=== PATIENT | female | born 1950 | race Caucasian/White ===

== ENCOUNTER → 2016-12-02 | Outpatient (CLI) | payer BC ==
--- NOTE | 2016-12-02 16:16 | MY ---
EXAMINATION: Bilateral digital mammography utilizing CAD. HISTORY: Screening exam. Comparison is made to previous studies dated 08/04/2015, 07/08/2014, 2012. FINDINGS: Bilateral scattered fibroglandular densities. No suspicious calcifications, masses or a rchitectural distortions. No pathologic appearing lymph nodes, no abnormal skin thickening or nipp le inversion. CAD highlighted regions appear normal at this time. IMPRESSION: BI-RADS category I - negative mammogram. Continued screening according to ACR-ACS gu idelines suggested. THE FALSE-NEGATIVE RATE OF MAMMOGRAM IS APPROXIMATELY 10%. MANAGEMENT OF A PALPABLE ABNORMALITY MUST BE BASED UPON CLINICAL GROUNDS. SENSITIVITY FOR DETECTION OF ABNORMALITIES IN DENSE BREASTS IS LOW. NOTE: A letter will be sent to the patient regarding findings. -- COLLETTE Randolph [phone] - FAX [phone]
== END ==
LOC: MW.CHOBGYN 10:24
PROVIDERS: ATTEND Nurse Practitioner Women's Health
DX: Z12.31 Encounter for screening mammogram for malignant neoplasm of breast (principal)
CPT/HCPCS: G0202; G0202-26

== ENCOUNTER → 2017-02-14 | Outpatient (CLI) | payer BC | LOC: MW.RT 20:07 | PROVIDERS: ATTEND Student in an Organized Health Care Education/Training Program | DX: I49.3 Ventricular premature depolarization (principal) ==

== ENCOUNTER 2018-11-03 22:07 | Emergency (ER) | payer MEDICARE, BC ==
[2018-11-03] MEDS ORDERED: Aspirin 81 MG Tab.Chew PO ONE (22:08)
[2018-11-03] MEDS ORDERED: Sodium Chloride 0.9% 1,000 ML IV ONE (22:08)
[2018-11-03] MEDS ORDERED: Pantoprazole 40 MG Vial IVPUSH ONE (22:09)
--- NOTE | 2018-11-03 22:09 | EDM.PDOC ---
ED HPI GENERAL MEDICAL PROBLEM - General Chief Complaint: Abdominal Pain Stated Complaint: PT HAS STOMACH PAINS Time Seen by Provider: 11/03/18 22:09 Source of Information: Reports: Patient - History of Present Illness INITIAL COMMENTS - FREE TEXT/NARRATIVE: HISTORY AND PHYSICAL: History of present illness: [Patient presents with epigastric pain 4 out of 10 nonradiating no shortness of breath or diaphoresis no radiation arm neck or jaw, discomfort persistent for 3 hours Pain resolved without treatment shortly after arrival was sitting up prior home she was lying down acid reflux would be a consideration However with age and recent bradycardia on Rythmol would've preferred to observe the patient however she refuses to be admitted at this time and elects to go home she states she'll return if symptoms persist or worsen she is completely asymptomatic at current ] Review of systems: As per history of present illness and below otherwise all systems reviewed and negative. Past medical history: As per history of present illness and as reviewed below otherwise noncontributory. Surgical history: As per history of present illness and as reviewed below otherwise noncontributory. Social history: No reported history of drug or alcohol abuse. Family history: As per history of present illness and as reviewed below otherwise noncontributory. Physical exam: HEENT: Atraumatic, normocephalic, pupils reactive, negative for conjunctival pallor or scleral icterus, mucous membranes moist, throat clear, neck supple, nontender, trachea midline. Lungs: Clear to auscultation, breath sounds equal bilaterally, chest nontender. Heart: S1S2, regular, negative for clicks, rubs, or JVD. Abdomen: Soft, nondistended, nontender. Negative for masses or hepatosplenomegaly. Negative for costovertebral tenderness. Pelvis: Stable nontender. Genitourinary: Deferred. Rectal: Deferred. Extremities: Atraumatic, negative for cords or calf pain. Neurovascular unremarkable. Neuro: Awake, alert, oriented. Cranial nerves II through XII unremarkable. Cerebellum unremarkable. Motor and sensory unremarkable throughout. Exam nonfocal. Diagnostics: []CBC CMP troponin lipase INR UA Therapeutics: []Aspirin Proton X 80 mg IV Patient offered observation admission for telemetry she refused at this time Macrobid Impression: [] epigastric pain -resolved Before meals UTI Chronic history baseline Definitive disposition and diagnosis as appropriate pending reevaluation and review of above. epigastric area Pain Score (Numeric/FACES): 2 - Related Data Allergies Allergy/AdvReac Type Severity Reaction Status Date / Time Penicillins Allergy Cannot Verified 11/03/18 22:22 Remember gentamycin eye drops Allergy Swelling Uncoded 11/03/18 22:22 Home Meds: Home Meds Aspirin 81 mg PO DAILY 09/25/18 [History] Carbidopa/Levodopa [Carbidopa-Levo ER 25-100] 1 tab PO DAILY 09/25/18 [History] Diclofenac Sodium [Voltaren] 75 mg PO BIDMEALS PRN #14 tab.cr 09/25/18 [Rx] Fluticasone/Vilanterol [Breo Ellipta 200-25 Mcg INH] 1 puff IN DAILY 09/25/18 [ History] Gemfibrozil 1 tab PO DAILY 09/25/18 [History] Metoprolol Succinate [Toprol XL] 25 mg PO DAILY 09/25/18 [History] Orphenadrine [Norflex] 100 mg PO BID PRN #10 tab 09/25/18 [Rx] Propafenone [Rythmol] 150 mg PO TID 09/25/18 [History] Vitamin B Complex 1 each PO DAILY 09/25/18 [History] Past Medical History HEENT History: Other HEENT History: wears contacts/glasses Cardiovascular History: Reports: Other (See Below) Other Cardiovascular History: occasional irregular heartbeat Respiratory History: Reports: COPD Other Respiratory History: states "mild COPD" Gastrointestinal History: Reports: None Genitourinary History: Reports: None Musculoskeletal History: Reports: Gout Other Musculoskeletal History: states "gout years ago" Neurological History: Reports: None Psychiatric History: Reports: Anxiety, Depression Endocrine/Metabolic History: Reports: Obesity/BMI 30+ Hematologic History: Reports: None Immunologic History: Reports: None Oncologic (Cancer) History: Reports: None Dermatologic History: Other Dermatologic History: adult acne - Infectious Disease History Infectious Disease History: Reports: Chicken Pox, Measles - Past Surgical History Head Surgeries/Procedures: Reports: None Social & Family History - Family History Family Medical History: Noncontributory ED ROS GENERAL - Review of Systems Review Of Systems: See Below ED EXAM, GENERAL - Physical Exam Exam: See Below Course - Vital Signs Last Recorded V/S: Last Vital Signs Temp 97.6 F 11/03/18 22:10 Pulse 54 L 11/03/18 22:10 Resp 18 11/03/18 22:10 BP 141/73 H 11/03/18 22:10 Pulse Ox 95 11/03/18 22:10 - Orders/Labs/Meds Orders: Active Orders 24 hr Category Date Time Status EKG Documentation Completion [RC] STAT Care 11/03/18 22:09 Active CULTURE URINE [RM] Stat Lab 11/03/18 22:12 Received Sodium Chloride 0.9% [Normal Saline] 1,000 ml Med 11/03/18 22:08 Active IV STAT Medication Orders Sodium Chloride (Normal Saline) 1,000 mls @ 999 mls/hr IV STAT ONE Stop: 11/03/18 23:08 Last Admin: 11/03/18 22:32 Dose: 999 mls/hr Labs: Laboratory Tests 11/03/18 11/03/18 11/03/18 Range/Units 22:12 22:28 22:28 WBC 6.94 (4.0-11.0) K/uL RBC 4.72 (4.30-5.90) M/uL Hgb 14.8 (12.0-16.0) g/dL Hct 43.5 (36.0-46.0) % MCV 92.2 (80.0-98.0) fL MCH 31.4 (27.0-32.0) pg MCHC 34.0 (31.0-37.0) g/dL RDW Std Deviation 43.3 (28.0-62.0) fl RDW Coeff of Roly 13 (11.0-15.0) % Plt Count 246 (150-400) K/uL MPV 10.10 (7.40-12.00) fL Neut % (Auto) 64.6 (48.0-80.0) % Lymph % (Auto) 23.2 (16.0-40.0) % [place] % (Auto) 9.2 (0.0-15.0) % Eos % (Auto) 2.6 (0.0-7.0) % Baso % (Auto) 0.4 (0.0-1.5) % Neut # (Auto) 4.5 (1.4-5.7) K/uL Lymph # (Auto) 1.6 (0.6-2.4) K/uL [place] # (Auto) 0.6 (0.0-0.8) K/uL Eos # (Auto) 0.2 (0.0-0.7) K/uL Baso # (Auto) 0.0 (0.0-0.1) K/uL Nucleated RBC % 0.0 /100WBC Nucleated RBCs # 0 K/uL INR 1.06 Sodium (136-145) mmol/L Potassium (3.5-5.1) mmol/L Chloride (98-107) mmol/L Carbon Dioxide (21.0-32.0) mmol/L BUN (7.0-18.0) mg/dL Creatinine (0.6-1.0) mg/dL Est Cr Clr Drug Dosing mL/min Estimated GFR (MDRD) ml/min Glucose (74-106) mg/dL Calcium (8.5-10.1) mg/dL Total Bilirubin (0.2-1.0) mg/dL AST (15-37) IU/L ALT (14-63) IU/L Alkaline Phosphatase (46-116) U/L Creatine Kinase (26-308) U/L Troponin I (0.000-0.056) ng/mL Total Protein (6.4-8.2) g/dL Albumin (3.4-5.0) g/dL Globulin (2.6-4.0) g/dL Albumin/Globulin Ratio (0.9-1.6) Lipase (73-393) U/L Urine Color YELLOW Urine Appearance SLT CLOUDY Urine pH 6.0 (5.0-8.0) Ur Specific [place] 1.020 (1.001-1.035) Urine Protein NEGATIVE (NEGATIVE) mg/dL Urine Glucose (UA) NEGATIVE (NEGATIVE) mg/dL Urine Ketones TRACE H (NEGATIVE) mg/dL Urine Occult Blood NEGATIVE (NEGATIVE) Urine Nitrite NEGATIVE (NEGATIVE) Urine Bilirubin NEGATIVE (NEGATIVE) Urine Urobilinogen 0.2 (<2.0) EU/dL Ur Leukocyte Esterase TRACE H (NEGATIVE) Urine RBC 0-2 (0-2/HPF) Urine WBC 2-4 (0-5/HPF) Ur Epithelial Cells OCCASIONAL (NONE-FEW) Calcium Oxalate Crystal MANY (NEGATIVE) Urine Bacteria FEW (NEGATIVE) 11/03/18 Range/Units 22:28 WBC (4.0-11.0) K/uL RBC (4.30-5.90) M/uL Hgb (12.0-16.0) g/dL Hct (36.0-46.0) % MCV (80.0-98.0) fL MCH (27.0-32.0) pg MCHC (31.0-37.0) g/dL RDW Std Deviation (28.0-62.0) fl RDW Coeff of Roly (11.0-15.0) % Plt Count (150-400) K/uL MPV (7.40-12.00) fL Neut % (Auto) (48.0-80.0) % Lymph % (Auto) (16.0-40.0) % [place] % (Auto) (0.0-15.0) % Eos % (Auto) (0.0-7.0) % Baso % (Auto) (0.0-1.5) % Neut # (Auto) (1.4-5.7) K/uL Lymph # (Auto) (0.6-2.4) K/uL [place] # (Auto) (0.0-0.8) K/uL Eos # (Auto) (0.0-0.7) K/uL Baso # (Auto) (0.0-0.1) K/uL Nucleated RBC % /100WBC Nucleated RBCs # K/uL INR Sodium 142 (136-145) mmol/L Potassium 4.4 (3.5-5.1) mmol/L Chloride 107 (98-107) mmol/L Carbon Dioxide 27.3 (21.0-32.0) mmol/L BUN 18 (7.0-18.0) mg/dL Creatinine 1.0 (0.6-1.0) mg/dL Est Cr Clr Drug Dosing 51.63 mL/min Estimated GFR (MDRD) 55.0 ml/min Glucose 150 H (74-106) mg/dL Calcium 9.7 (8.5-10.1) mg/dL Total Bilirubin 0.3 (0.2-1.0) mg/dL AST 12 L (15-37) IU/L ALT 19 (14-63) IU/L Alkaline Phosphatase 143 H (46-116) U/L Creatine Kinase 87 (26-308) U/L Troponin I < 0.050 (0.000-0.056) ng/mL Total Protein 7.1 (6.4-8.2) g/dL Albumin 3.7 (3.4-5.0) g/dL Globulin 3.4 (2.6-4.0) g/dL Albumin/Globulin Ratio 1.1 (0.9-1.6) Lipase 146 (73-393) U/L Urine Color Urine Appearance Urine pH (5.0-8.0) Ur Specific [place] (1.001-1.035) Urine Protein (NEGATIVE) mg/dL Urine Glucose (UA) (NEGATIVE) mg/dL Urine Ketones (NEGATIVE) mg/dL Urine Occult Blood (NEGATIVE) Urine Nitrite (NEGATIVE) Urine Bilirubin (NEGATIVE) Urine Urobilinogen (<2.0) EU/dL Ur Leukocyte Esterase (NEGATIVE) Urine RBC (0-2/HPF) Urine WBC (0-5/HPF) Ur Epithelial Cells (NONE-FEW) Calcium Oxalate Crystal (NEGATIVE) Urine Bacteria (NEGATIVE) Meds: Medications Generic Name Dose Route Start Last Admin Trade Name Freq PRN Reason Stop Dose Admin Sodium Chloride 1,000 mls @ 999 mls/hr 11/03/18 22:08 11/03/18 22:32 Normal Saline IV 11/03/18 23:08 999 mls/hr STAT ONE Administration Discontinued Medications Generic Name Dose Route Start Last Admin Trade Name Freq PRN Reason Stop Dose Admin Aspirin 324 mg 11/03/18 22:08 11/03/18 22:33 Aspirin PO 11/03/18 22:09 324 mg ONETIME ONE Administration Pantoprazole Sodium 80 mg 11/03/18 22:09 11/03/18 22:36 Protonix Iv IVPUSH 11/03/18 22:10 80 mg .BOLUS ONE Administration Departure - Departure Time of Disposition: 23:09 Disposition: Home, Self-Care 01 Condition: Good Clinical Impression: UTI (urinary tract infection) - Discharge Information Forms: ED Department Discharge Additional Instructions: The following information is given to patients seen in the emergency department who are being discharged to home. This information is to outline your options for follow-up care. We provide all patients seen in our emergency department with a follow-up referral. The need for follow-up, as well as the timing and circumstances, are variable depending upon the specifics of your emergency department visit. If you don't have a primary care physician on staff, we will provide you with a referral. We always advise you to contact your personal physician following an emergency department visit to inform them of the circumstance of the visit and for follow-up with them and/or the need for any referrals to a consulting specialist. The emergency department will also refer you to a specialist when appropriate. This referral assures that you have the opportunity for follow-up care with a specialist. All of these measure are taken in an effort to provide you with optimal care, which includes your follow-up. Under all circumstances we always encourage you to contact your private physician who remains a resource for coordinating your care. When calling for follow-up care, please make the office aware that this follow-up is from your recent emergency room visit. If for any reason you are refused follow-up, please contact the [facility] emergency department at and asked to speak to the emergency department charge nurse. - My Orders Last 24 Hours: My Active Orders 11/03/18 22:08 Sodium Chloride 0.9% [Normal Saline] 1,000 ml IV STAT 11/03/18 22:09 EKG Documentation Completion [RC] STAT 11/03/18 22:12 CULTURE URINE [RM] Stat - Assessment/Plan Last 24 Hours: My Active Orders 11/03/18 22:08 Sodium Chloride 0.9% [Normal Saline] 1,000 ml IV STAT 11/03/18 22:09 EKG Documentation Completion [RC] STAT 11/03/18 22:12 CULTURE URINE [RM] Stat
--- NOTE | 2018-11-03 22:47 | CR ---
INDICATION: pain TECHNIQUE: Chest 1 view. COMPARISON: 03/15/16 FINDINGS: Cardiovascular and mediastinum: Heart size and vasculature are normal in caliber and appearance. Mediastinum is within normal limits. Lungs and pleural space: Lungs are clear. No sign of infiltrate or mass. No sign of pleural effusion. No pneumothorax. Bones and soft tissues: No significant findings. IMPRESSION: Unremarkable chest. Dictated by: Richard Stevens MD @ 11/03/2018 22:45:34 (Electronically Signed)
[2018-11-03 22:59] LABS: CHLORIDE,CL 107 mmol/L (98-107); SODIUM,NA 142 mmol/L (136-145)
[2018-11-03 23:21] VITALS: BP 145/83
== END 2018-11-03 23:21 | disposition home or self-care (01) ==
LOC: MW.ED 22:07
DX: N39.0 Urinary tract infection, site not specified (principal); Z88.0 Allergy status to penicillin; Z88.1 Allergy status to other antibiotic agents; Z79.82 Long term (current) use of aspirin; Z79.899 Other long term (current) drug therapy
CPT/HCPCS: 36415; 71045; 80053; 81001; 82550; 83690; 84484; 85025; 85610; 87086; 96361; 96374; 99284; A9270; C9113; J7040; 93005

== ENCOUNTER 2019-02-16 06:25 | Day surgery (SDC) | payer MEDICARE, BC ==
[~2019-02-16 06:25] MED LIST: Lactated Ringers 1,000 ML IV SCH; Sodium Chloride 0.9% 10 ML SDV IV PRN; Sodium Chloride 0.9% 10 ML Syringe FLUSH PRN; Sodium Chloride 0.9% 2.5 ML Syringe FLUSH PRN; ceFAZolin 2 GM in Premix Bag 1 BAG IV ONE
[2019-02-16] MEDS ORDERED: Bupivacaine 0.5% 10 ML SDV ONE ×2 (07:07→09:48)
[2019-02-16] MEDS ORDERED: fentaNYL 250 MCG/5 ML SDV ONE (07:24)
[2019-02-16] MEDS ORDERED: Propofol 200 MG/20 ML SDV ONE (07:24)
[2019-02-16] MEDS ORDERED: Scopolamine 1.5 MG Transdermal Patch TRDERM PRN (07:30)
[2019-02-16] MEDS ORDERED: Rocuronium 100 MG/10 ML Syringe ONE (07:31)
[2019-02-16] MEDS ORDERED: Ondansetron 4 MG/2 ML SDV ONE (07:31)
[2019-02-16] MEDS ORDERED: Dexamethasone 4 MG/ML 5 ML MDV ONE (07:31)
--- NOTE | 2019-02-16 07:36 | PCM.PREANE ---
Preanesthetic Assessment - Anesthesia/Transfusion/Family Hx Anesthesia History: Prior Anesthesia Without Reaction Family History of Anesthesia Reaction: No Transfusion History: No Prior Transfusion(s) - Review of Systems General: No Symptoms Pulmonary: No Symptoms Cardiovascular: No Symptoms Gastrointestinal: No Symptoms Neurological: Pre-Existing Deficit Other: Reports: None - Physical Assessment NPO Status Date: 02/16/19 NPO Status Time: 05:30 O2 Sat by Pulse Oximetry: 95 Respiratory Rate: 16 Vital Signs: Last Vital Signs Temp 95.9 F 02/16/19 06:45 Pulse 59 L 02/16/19 06:45 Resp 16 02/16/19 06:45 BP 112/65 02/16/19 06:45 Pulse Ox 95 02/16/19 06:45 Height: 5 ft 7 in Weight: 102.512 kg ASA Class: 3 Mental Status: Alert & Oriented x3 Airway Class: Mallampati = 3 Dentition: Reports: Partial (upper) ROM/Head Extension: Full Lungs: Clear to Auscultation, Normal Respiratory Effort Cardiovascular: Regular Rate, Regular Rhythm - Allergies Allergies/Adverse Reactions: Allergies Allergy/AdvReac Type Severity Reaction Status Date / Time Penicillins Allergy Cannot Verified 02/10/19 14:42 Remember Sulfa (Sulfonamide Allergy Rash Verified 02/10/19 14:42 Antibiotics) tobramycin Allergy Rash Verified 02/10/19 14:42 gentamycin eye drops Allergy Swelling Uncoded 02/10/19 14:42 - Blood Blood Available: No - Anesthesia Plan Pre-Op Medication Ordered: Other (scop) - Acknowledgements Anesthesia Type Planned: General Anesthesia Pt an Appropriate Candidate for the Planned Anesthesia: Yes Alternatives and Risks of Anesthesia Discussed w Pt/Guardian: Yes Pt/Guardian Understands and Agrees with Anesthesia Plan: Yes Additional Comments: PMH: parkinsons, copd, anx/dep, hld, BERNARD-too mild to be covered by [facility], 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 since we will be giving drugs that may increast QT, will recheck QTc this am. PLAN: GET PreAnesthesia Questionnaire HEENT History: Reports: Allergic Rhinitis Other HEENT History: wears contacts and uses readers Cardiovascular History: Reports: Arrhythmia, High Cholesterol Other Cardiovascular History: hx of frequent PVC's Respiratory History: Reports: COPD, Sleep Apnea Other Respiratory History: states "mild" COPD and "mild" sleep apnea (no CPAP) Gastrointestinal History: Reports: Cholelithiasis, PUD Other Gastrointestinal History: hx of gastric ulcer as a child Genitourinary History: Reports: Other (See Below) Other Genitourinary History: recent UTI [employer]ACHIN[employer] History: Reports: Musculoskeletal History: Reports: Gout Other Musculoskeletal History: states "gout years ago" Neurological History: Reports: Parkinson's, Other (See Below) Other Neuro History: tremor right hand, Claustrophobic in MRI machine Psychiatric History: Reports: Other (See Below) Other Psychiatric History: possibly slight ADD Endocrine/Metabolic History: Reports: Obesity/BMI 30+ Hematologic History: Reports: None Immunologic History: Reports: None Oncologic (Cancer) History: Reports: None Dermatologic History: Reports: Other (See Below) Other Dermatologic History: Rosacea - Infectious Disease History Infectious Disease History: Reports: Chicken Pox, Measles - Past Surgical History Head Surgeries/Procedures: Reports: None GI Surgical History: Reports: None Female Surgical History: Reports: None Musculoskeletal Surgical History: Reports: Carpal Tunnel, Other (See Below) Other Musculoskeletal Surgeries/Procedures:: hx of bilateral CTR and removal of Neuroma right wrist - SUBSTANCE USE Smoking Status *Q: Former Smoker Tobacco Use Within Last Twelve Months: No Recreational Drug Use History: No - HOME MEDS Home Medications: Home Meds Aspirin 81 mg PO DAILY 09/25/18 [History] Carbidopa/Levodopa [Carbidopa-Levo ER 25-100] 1 tab PO TID 09/25/18 [History] Fluticasone/Vilanterol [Breo Ellipta 200-25 Mcg INH] 1 puff IN DAILY 09/25/18 [ History] Gemfibrozil 600 mg PO DAILY 09/25/18 [History] Metoprolol Succinate [Toprol XL] 25 mg PO QAM 09/25/18 [History] Propafenone [Rythmol] 150 mg PO TID 09/25/18 [History] Calcium Carbonate/Vitamin D3 [Calcium 600 + Vit D 200] 1 tab PO DAILY 02/10/19 [ History] Fish Oil/Borage/Flax/Om3,6,9#1 [[place] 3-6-9 Complex Softgel] 1 cap PO DAILY [History] Lutein/Minerals/Vit A,C & E [Ocuvite] 1 tab PO DAILY 02/10/19 [History] Magnesium 250 mg PO DAILY 02/10/19 [History] Protandin 1 tab PO DAILY 02/10/19 [History] - CURRENT (IN HOUSE) MEDS Current Meds: Current Medications Lactated Ringer's (Ringers, Lactated) 1,000 mls @ 125 mls/hr IV ASDIRECTED SHANA Last Admin: 02/16/19 06:50 Dose: 125 mls/hr Sodium Chloride (Saline Flush) 10 ml FLUSH ASDIRECTED PRN PRN Reason: Keep Vein Open Sodium Chloride (Saline Flush) 2.5 ml FLUSH ASDIRECTED PRN PRN Reason: Keep Vein Open Sodium Chloride (Normal Saline) 10 ml IV ASDIRECTED PRN PRN Reason: IV Use Discontinued Medications Bupivacaine HCl (Sensorcaine-Mpf 0.5%) Confirm Administered Dose 10 ml .ROUTE .STK-MED ONE Stop: 02/16/19 07:08 Fentanyl (Sublimaze) Confirm Administered Dose 250 mcg .ROUTE .STK-MED ONE Stop: 02/16/19 07:25 Cefazolin Sodium/Dextrose 2 gm (/ Premix) 50 mls @ 100 mls/hr IV ONETIME ONE Stop: 02/15/19 09:46 Lidocaine HCl (Xylocaine-Mpf 1%) Confirm Administered Dose 5 mls @ as directed .ROUTE .STK-MED ONE Stop: 02/16/19 07:25 Propofol (Diprivan 20 Ml) Confirm Administered Dose 200 mg .ROUTE .STK-MED ONE Stop: 02/16/19 07:25
[2019-02-16] MEDS ORDERED: ceFAZolin/Dextrose,Iso-Osmotic 2 GM/50 ML Duplex Bag IV ONE (08:12)
[2019-02-16] MEDS ORDERED: ePHEDrine 50 MG/ML SDV ONE (08:15)
[2019-02-16] MEDS ORDERED: Glycopyrrolate 0.2 MG/ML SDV ONE ×2 (08:51→09:44)
[2019-02-16] MEDS ORDERED: Albuterol 0.083% 2.5 MG/3 ML Neb Soln NEB PRN (09:09)
[2019-02-16] MEDS ORDERED: 50% Dextrose in Water 50 ML Syringe IVPUSH PRN (09:09)
[2019-02-16] MEDS ORDERED: Atropine 0.1 MG/ML 10 ML Syringe IVPUSH PRN ×2 (09:09)
[2019-02-16] MEDS ORDERED: EPINEPHrine 1:10,000 1 MG/10 ML Syringe IVPUSH PRN (09:09)
[2019-02-16] MEDS ORDERED: Naloxone 0.4 MG/ML Syringe IVPUSH PRN (09:09)
[2019-02-16] MEDS ORDERED: Neostigmine Methylsulfate 1 MG/ML 5 ML Syringe ONE (09:44)
[2019-02-16] MEDS ORDERED: Sugammadex Sodium 200 MG/2 ML VIAL ONE (09:48)
[2019-02-16] MEDS ORDERED: fentaNYL 100 MCG/2 ML SDV ONE (09:58)
--- NOTE | 2019-02-16 09:58 | PCM.OPNOTE ---
<Nam Hull - Last Filed: 02/16/19 09:56> - General Post-Op/Procedure Note Date of Surgery/Procedure: 02/16/19 Operative Procedure(s): [place] Findings: 4 Cm Gallstone contained within the Gallbladder. Pre Op Diagnosis: Cholelithias Post-Op Diagnosis: Cholelithiasis Primary Surgeon: Valerie Lackey Secondary Surgeon: Nam Hull Fluid Replacement, Intraop: 1,300 Output, Urine Amount: 30 EBL in mLs: 10 Complications: None Condition: Good <Valerie Lackey - Last Filed: 02/16/19 10:15> - General Post-Op/Procedure Note Pre Op Diagnosis: Symptomatic cholelithiasis Post-Op Diagnosis: Chronic cholecystits with cholelithiasis Anesthesia Technique: General ET Tube Pathology: gallbladder Free Text/Narrative:: Intake & Output 02/15/19 02/16/19 02/16/19 22:59 06:59 14:59 Intake Total 1300 Output Total 30 Balance 1270
[2019-02-16] MEDS: fentaNYL 100 MCG/2 ML SDV IVPUSH PRN ×2 (10:17→10:25)
--- NOTE | 2019-02-16 10:37 | PCM.POSTAN ---
POST ANESTHESIA ASSESSMENT - MENTAL STATUS Mental Status: Alert, Oriented - RESPIRATORY Respiratory Status: Respiratory Rate WNL, Airway Patent, O2 Saturation Stable ( nc) - CARDIOVASCULAR CV Status: Pulse Rate WNL, Blood Pressure Stable - GASTROINTESTINAL GI Status: No Symptoms - POST OP HYDRATION Hydration Status: Adequate & Stable
[2019-02-16] MEDS ORDERED: Acetaminophen 1,000 MG in Premix Bag 1 BAG IV ONE (11:19)
--- NOTE | 2019-02-16 12:30 | OR ---
SURGEON: VALERIE BENAVIDEZ MD DATE OF PROCEDURE: 02/16/2019 PREOPERATIVE DIAGNOSIS: Symptomatic cholelithiasis. POSTOPERATIVE DIAGNOSIS: Chronic cholecystitis with cholelithiasis. PROCEDURE PERFORMED: Laparoscopic cholecystectomy. PRIMARY SURGEON: Valerie Benavidez MD. REGIONAL TRANSPORTATION MANAGER: Shop Director: Dr. Nam Hull, Program Director Scouting. FLUIDS: 1300 mL of crystalloid. ESTIMATED BLOOD LOSS: 10 mL. URINE OUTPUT: 30 mL. ANESTHESIA: General endotracheal anesthesia. FINDINGS: A 3- to 4-cm stone within the body of the gallbladder with signs of chronic cholecystitis. COMPLICATIONS: None. INDICATIONS: The patient is a 68-year-old female, who presents with symptomatic cholelithiasis. The patient and I discussed the need for cholecystectomy. I explained both the laparoscopic and open approaches. I explained that I would attempt this laparoscopically, but should I be unable to perform it safely, I converted to open. The patient and I discussed the expected perioperative course as well as the risks including bleeding, infection, or damage to surrounding structures. The patient verbalized understanding and wishes to proceed. PROCEDURE IN DETAIL: The patient was brought into the OR and placed on the OR table in supine position. A time-out was completed verifying the patient's name, age, date of , allergies, and procedure to be performed. General endotracheal anesthesia was induced. The left arm was tucked at the patient's side and a Espino catheter placed. The abdomen was prepped and draped in usual standard fashion. I anesthetized the supraumbilical midline with 0.5% Marcaine plain. A 2 cm incision was made using an 11 blade. Cautery was used to dissect down to the level of subcutaneous fat. I bluntly dissected down to the fascia and elevated it with Flo's. It was incised sharply. I identified the peritoneum, elevated this, and incised it as well. Entry into the abdomen was palpated digitally. A 12 mm Saranya trocar was placed in the abdomen and the abdomen insufflated. A 5 mm 30-degree scope was inserted. I inspected the area underneath my initial trocar placement. No damage to surrounding structures was noted. The patient was placed into reverse Trendelenburg position and airplaned slightly to the left. Three 5 mm trocars were placed under direct visualization in the following locations; 1 in the epigastric area, 1 in the right flank, and 1 two fingerbreadths below the right subcostal margin along the midclavicular line. I attempted to grasp the dome of the gallbladder, however, it was very firm. With some manipulation, I was able to eventually get a grasp of the gallbladder wall and elevate the gallbladder. It was grossly distended. I attempted to use an aspiration needle to decompress the gallbladder, however, no bilious fluid was obtained. The gallbladder was gently elevated above the liver and I exposed the infundibulum. The infundibulum was covered in inflamed fatty tissue. This was taken down using both electrocautery and gentle blunt dissection. The case was quite difficult given that the patient had an extremely large stone impacted in the body of the gallbladder. Fortunately, the infundibulum was soft and pliable, and I was able to safely take down all the peritoneal attachments to obtain my critical view. A photograph was taken once I had obtained my critical view. I then doubly clipped and ligated my cystic duct and artery. Using electrocautery, I then gently and meticulously took down the attachments of the gallbladder to the gallbladder fossa. This was quite difficult given the large nature of the stone. I was eventually able to safely take the gallbladder off the liver bed. I inspected my operative field. It was hemostatic with no evidence of biliary leakage. Given the large size of the gallstone, I decided to irrigate my abdomen before removing it as I was afraid that I would have to make a much larger incision to get the gallstones out and would not be able to hold any insufflation anymore. The abdomen was irrigated with normal saline until it ran clear. I reinspected my operative field and it was hemostatic. I then placed the gallbladder in an endoscopic bag and attempted to remove it through the supraumbilical port site. I did have to extend my incision 2 more cm in order to remove the gallbladder from the abdominal cavity. It was passed off the field and sent to Pathology. I then removed my 5 mm trocars with digital palpation. I closed the supraumbilical incision site with [id number] Vicryl sutures. I then closed the subcutaneous fat layer with interrupted 3-0 Vicryl. The skin was closed with a running 4-0 Monocryl suture. The 5 mm trocar sites were closed with interrupted 4-0 Monocryl sutures. Steri-Strips and sterile dressings were applied. The patient tolerated the procedure well and was taken to PACU in stable condition. All counts were complete and correct at the end of the case. CHLOE WRIGHT /[id number]
--- NOTE | 2019-02-16 12:34 | PCM48HPAN ---
Post Anesthesia Note - EVALUATION WITHIN 48HRS OF ANESTHETIC Vital Signs in Normal Range: Yes Patient Participated in Evaluation: Yes Respiratory Function Stable: Yes Airway Patent: Yes Cardiovascular Function Stable: Yes Hydration Status Stable: Yes Pain Control Satisfactory: Yes Nausea and Vomiting Control Satisfactory: Yes Mental Status Recovered: Yes Resp Rate: 16
[2019-02-16 12:40] VITALS: BP 122/60
== END 2019-02-16 12:35 | disposition home or self-care (01) ==
LOC: MW.SDS 06:25
PROVIDERS: ATTEND Surgery
DX: K80.10 Calculus of gallbladder with chronic cholecystitis without obstruction (principal); J44.1 Chronic obstructive pulmonary disease with (acute) exacerbation; G47.33 Obstructive sleep apnea (adult) (pediatric); F41.8 Other specified anxiety disorders; E78.5 Hyperlipidemia, unspecified; E66.9 Obesity, unspecified; Z68.35 Body mass index [BMI] 35.0-35.9, adult; Z87.891 Personal history of nicotine dependence; Z88.0 Allergy status to penicillin; Z88.2 Allergy status to sulfonamides; Z88.1 Allergy status to other antibiotic agents; Z79.82 Long term (current) use of aspirin; Z79.899 Other long term (current) drug therapy
CPT/HCPCS: 47562; 93005; A4217; A9270; J0131; J0690; J1100; J2001; J2405; J2704; J3010; J3490; J7120; 00790; 88304

== ENCOUNTER 2022-03-14 10:08 | Day surgery (SDC) | payer MEDICARE, OTHER ==
[~2022-03-14 10:08] MED LIST changes: -Sodium Chloride 0.9% 10 ML SDV IV PRN; +Sodium Chloride 0.9% 20 ML SDV IV PRN; -ceFAZolin 2 GM in Premix Bag 1 BAG IV ONE
[2022-03-14] MEDS ORDERED: Lidocaine 2% 5 ML SDV ONE (12:08)
[2022-03-14] MEDS ORDERED: Propofol 200 MG/20 ML SDV ONE (12:08)
[2022-03-14] MEDS ORDERED: fentaNYL 100 MCG/2 ML SDV ONE (12:08)
[2022-03-14 13:40] VITALS: BP 138/73; PULSE 50
== END 2022-03-14 14:00 | disposition home or self-care (01) ==
LOC: MW.SDS 10:08
PROVIDERS: ATTEND Surgery
DX: D12.5 Benign neoplasm of sigmoid colon (principal); K57.30 Diverticulosis of large intestine without perforation or abscess without bleeding; J44.9 Chronic obstructive pulmonary disease, unspecified; F41.8 Other specified anxiety disorders; E78.5 Hyperlipidemia, unspecified; G47.33 Obstructive sleep apnea (adult) (pediatric); E78.00 Pure hypercholesterolemia, unspecified; Z88.2 Allergy status to sulfonamides; Z88.0 Allergy status to penicillin; Z88.1 Allergy status to other antibiotic agents; Z90.49 Acquired absence of other specified parts of digestive tract; Z87.891 Personal history of nicotine dependence; Z79.51 Long term (current) use of inhaled steroids; Z79.82 Long term (current) use of aspirin; Z79.899 Other long term (current) drug therapy
CPT/HCPCS: 45380; J2704; J3010; J7120; 00811; 88305; 99100

== ENCOUNTER 2025-08-04 06:49 | Day surgery (SDC) | payer MEDICARE, OTHER ==
[~2025-08-04 06:49] MED LIST changes: -Lactated Ringers 1,000 ML IV SCH; -Sodium Chloride 0.9% 20 ML SDV IV PRN
[2025-08-04] MEDS: Lactated Ringers 1,000 ML IV SCH (07:15)
[2025-08-04] MEDS ORDERED: propofoL 500 MG/50 ML 50 ML ONE (07:23)
[2025-08-04 08:36] VITALS: BP 122/79; PULSE 47
== END 2025-08-04 08:50 | disposition home or self-care (01) ==
LOC: MW.SDS 06:49
PROVIDERS: ATTEND Surgery
DX: Z12.11 Encounter for screening for malignant neoplasm of colon (principal); D12.5 Benign neoplasm of sigmoid colon; K57.30 Diverticulosis of large intestine without perforation or abscess without bleeding; K64.1 Second degree hemorrhoids; E11.9 Type 2 diabetes mellitus without complications; I10 Essential (primary) hypertension; Z87.19 Personal history of other diseases of the digestive system; Z88.8 Allergy status to other drugs, medicaments and biological substances; Z88.0 Allergy status to penicillin; Z88.2 Allergy status to sulfonamides; Z86.16 Personal history of COVID-19; Z79.899 Other long term (current) drug therapy; Z87.891 Personal history of nicotine dependence; Z86.0100 Personal history of colon polyps, unspecified
CPT/HCPCS: 45380; J2704; J7120; 00811; 88305; 99100